=== PATIENT | female | born 1985 | race Caucasian/White ===

== ENCOUNTER → 2017-01-08 | Outpatient (CLI) | payer BC ==
[~2017-01-08] MED LIST: ALBUAER2 INH; AZIT250T PO; AZITTAB PO; BCPILLS PO; HYCUDL5 PO
[2017-01-08 17:28] LABS: URINE APPEARANCE CLEAR (CLEAR); URINE BILIRUBIN NEG (NEG); URINE COLOR YELLOW; URINE NITRITE NEG (NEG); URINE SPECIFIC GRAVITY 1.025 (1.000-1.030); UROBILINOGEN NEG (NEG)
[2017-01-08 17:29] LABS: MANUAL MICROSCOPIC REQUIRED? NO; REVIEW REQ? NO
== END | disposition home or self-care (01) ==
LOC: C.LABSPEC 16:03
PROVIDERS: ATTEND Obstetrics & Gynecology
DX: O09.299 Supervision of pregnancy with other poor reproductive or obstetric history, unspecified trimester (principal)

== ENCOUNTER → 2017-02-04 | Outpatient (CLI) | payer BC ==
[2017-02-04 15:48] LABS: BASO % 0.1 %; BASO ABS # 0.02 K/uL (0-0.2); COMPLETE YES; EOS % 1.4 %; HEMATOCRIT 37.2 % (37-47); IG% 0.3 %; LYMPH % 14.5 %; LYMPH ABS # 2.12 K/uL (1.2-3.4); MEAN CELL VOLUME 86.7 fL (80-100); MEAN CORPUSCULAR HEMOGLOBIN 30.1 pg (25-34); MEAN CORPUSCULAR HGB CONC 34.7 g/dl (32-36); NEUT % 79.7 %; PLATELET COUNT 296 K/uL (130-400); RED BLOOD COUNT 4.29 M/uL (4.2-5.4); WHITE BLOOD COUNT 14.63 K/uL (4.8-10.8)
== END | disposition home or self-care (01) ==
LOC: C.LAB1850 14:18
PROVIDERS: ATTEND Obstetrics & Gynecology
DX: Z34.00 Encounter for supervision of normal first pregnancy, unspecified trimester (principal)

== ENCOUNTER → 2017-02-04 | Outpatient (CLI) | payer BC ==
[2017-02-07 01:00] LABS: CHLAMYDIA TRACH RNA*** NOT DETECTED (NOT DETECTED); GC (NEIS GONORRHOEAE)RNA** NOT DETECTED (NOT DETECTED)
== END | disposition home or self-care (01) ==
LOC: C.LABSPEC 16:24
PROVIDERS: ATTEND Obstetrics & Gynecology
DX: Z34.00 Encounter for supervision of normal first pregnancy, unspecified trimester (principal)

== ENCOUNTER → 2017-03-24 | Outpatient (CLI) | payer BC ==
[~2017-03-24] MED LIST changes: +MTR600X PO; +OXYC-57 PO; +PRENTAB26 PO
[2017-03-24 14:09] LABS: GTGD 50 Grams
[2017-03-25 16:23] LABS: AFP MULTIPLE OF MEDIAN 1.06; AFPTS GESTATIONAL AGE 17.1 WEEKS; AFPTS INSULIN DEP DIABETIC? NO; AFPTS MATERNAL WT 256 LBS; ALPHA-FETOPROTEIN RACE CAUCASIAN=W; HISTORY OF NTD NO; INHIBIN A 101 PG/ML; INHIBIN A MOM 0.77; REPEAT SAMPLE? NO; hCG MULTIPLE OF MEDIAN 0.55
== END | disposition home or self-care (01) ==
LOC: C.LAB1850 09:42
PROVIDERS: ATTEND Obstetrics & Gynecology
DX: O09.299 Supervision of pregnancy with other poor reproductive or obstetric history, unspecified trimester (principal); Z3A.00 Weeks of gestation of pregnancy not specified

== ENCOUNTER → 2017-03-28 | Outpatient (CLI) | payer BC | END | disposition home or self-care (01) | LOC: C.LAB1850 07:13 | PROVIDERS: ATTEND Obstetrics & Gynecology | DX: O28.1 Abnormal biochemical finding on antenatal screening of mother (principal); Z3A.00 Weeks of gestation of pregnancy not specified ==

== ENCOUNTER → 2017-06-11 | Outpatient (CLI) | payer BC ==
[~2017-06-11] MED LIST changes: -MTR600X PO; -OXYC-57 PO; -PRENTAB26 PO
[2017-06-11 11:38] LABS: URINE APPEARANCE CLEAR (CLEAR); URINE BILIRUBIN NEG (NEG); URINE COLOR YELLOW; URINE EPITHELIAL CELL AUTO >30 /lpf (0-5); URINE NITRITE NEG (NEG); UROBILINOGEN NEG (NEG)
[2017-06-11 11:40] LABS: MANUAL MICROSCOPIC REQUIRED? NO; REVIEW REQ? NO
== END | disposition home or self-care (01) ==
LOC: C.LAB1850 08:33
PROVIDERS: ATTEND Obstetrics & Gynecology
DX: O24.410 Gestational diabetes mellitus in pregnancy, diet controlled (principal); Z3A.00 Weeks of gestation of pregnancy not specified

== ENCOUNTER → 2017-08-04 | Outpatient (CLI) | payer BC | END | disposition home or self-care (01) | LOC: C.LABSPEC 18:01 | PROVIDERS: ATTEND Obstetrics & Gynecology | DX: Z34.03 Encounter for supervision of normal first pregnancy, third trimester (principal) ==

== ENCOUNTER 2017-09-04 08:24 | Inpatient (IN) | payer BC ==
[~2017-09-04] VITALS: Ht 162.6 cm; Wt 118.2 kg
[2017-09-04] MEDS ORDERED: LACTATED RINGER'S 1000ML 500 ML IV PRN ×2 (08:59→14:57)
[2017-09-04] MEDS ORDERED: OXYTOCIN 30 UNITS/500ML NSS IV PRN (09:00)
[2017-09-04] MEDS ORDERED: CEFAZOLIN IV 1,000 MG in DEXTROSE 5% 50ML 50 ML IV PRN (09:30)
[2017-09-04 09:41] LABS: MEAN CORPUSCULAR HEMOGLOBIN 30.2 pg (25-34); MEAN CORPUSCULAR HGB CONC 33.9 g/dl (32-36); MEAN PLATELET VOLUME 8.7 fL (7.4-10.4); PLATELET COUNT 221 K/uL (130-400); RED BLOOD COUNT 4.27 M/uL (4.2-5.4); WHITE BLOOD COUNT 16.13 K/uL (4.8-10.8)
[2017-09-04] MEDS ORDERED: CEFAZOLIN IV 2,000 MG in SYRINGE 0 ML IV ONE (10:00)
[2017-09-04] MEDS ORDERED: CEFAZOLIN IV 2,000 MG in DEXTROSE 5% 50ML 50 ML IV ONE (10:00)
[2017-09-04] MEDS: LACTATED RINGER'S 1000ML 1,000 ML IV SCH (10:30)
[2017-09-04 11:56] VITALS: Ht 162.6 cm; Wt 118.2 kg
[2017-09-04] MEDS ORDERED: PRENTAB26 PO (12:03)
[2017-09-04] MEDS ORDERED: BUPIVACAINE 0.25% 30 ML VIAL ONE (14:09)
[2017-09-04] MEDS ORDERED: FENTANYL CITRATE INJ 50 MCG/1 ML 2 ML VIAL ONE (14:09)
[2017-09-04] MEDS ORDERED: EpHEDrine SULFATE INJ 50 MG/ML AMP ONE (14:09)
[2017-09-04] MEDS ORDERED: FENTANYL 2MCG/ML ROPIV 1.25MG/ML 100ML BAG EPI ONE (14:09)
[2017-09-04] MEDS: LACTATED RINGER'S 1000ML 1,000 ML IV PRN (14:36)
[2017-09-04] MEDS ORDERED: NALOXONE HCL INJ 1 MG in SODIUM CHLORIDE 0.9% 1000ML 1,000 ML IV PRN (14:57)
[2017-09-04] MEDS ORDERED: DiphenhydrAMINE HCL 50 MG/ML VIAL IV PRN (15:00)
[2017-09-04] MEDS ORDERED: ONDANSETRON INJ 2 MG/ML 2 ML VIAL IV PRN (15:00)
[2017-09-04] MEDS ORDERED: NALBUPHINE HCL INJ 10 MG/ML AMP IV PRN (15:00)
[2017-09-04] MEDS ORDERED: NALOXONE HCL INJ 0.4 MG/1 ML VIAL/CARP IV PRN (15:00)
[2017-09-04] MEDS ORDERED: EpHEDrine SULFATE INJ 50 MG/ML AMP IV PRN (15:00)
[2017-09-04] MEDS: CEFAZOLIN IV 1,000 MG in SYRINGE 0 ML IV PRN (18:47)
[2017-09-04] MEDS: FENTANYL 2MCG/ML ROPIV 1.25MG/ML 100ML BAG EPI PRN (23:10)
[2017-09-04] MEDS ORDERED: NURSING VERBAL MED ORDER ONE ×2 (23:45)
[2017-09-04] MEDS ORDERED: CALCIUM CARBONATE 500 MG CHEWABLE PO PRN (23:45)
[2017-09-05] VITALS (10 sets, daily range): BP systolic 118–144; BP diastolic 78–85; PULSE 96–103; TEMP 36.4–37; O2SAT 96–98
[2017-09-05] MEDS: ACETAMINOPHEN 325 MG TAB PO PRN ×2 (00:10→06:20)
[2017-09-05] MEDS: FENTANYL 2MCG/ML ROPIV 1.25MG/ML 100ML BAG EPI PRN ×2 (00:11→07:07)
[2017-09-05] MEDS: CEFAZOLIN IV 1,000 MG in SYRINGE 0 ML IV PRN (03:10)
[2017-09-05] MEDS: LACTATED RINGER'S 1000ML 1,000 ML IV SCH (05:00)
[2017-09-05] MEDS: LACTATED RINGER'S 1000ML 1,000 ML IV PRN (09:31)
[2017-09-05] MEDS ORDERED: LACTATED RINGER'S 1000ML 1,000 ML IV SCH ×2 (09:37→12:15)
[2017-09-05] MEDS ORDERED: CITRIC ACID/SODIUM CITRATE 15 ML UDC ONE (09:38)
[2017-09-05] MEDS ORDERED: CLINDAMYCIN IV 900 MG in DEXTROSE 5% 100ML 100 ML IV ONE (09:40)
[2017-09-05] MEDS ORDERED: LIDOCAINE/EPINEPHRINE 2% 1:200,000 20 ML SDV ONE (09:41)
[2017-09-05] MEDS ORDERED: OXYTOCIN INJ 10 UNITS/ML VIAL ONE ×2 (09:42)
[2017-09-05] MEDS ORDERED: PHENYLEPHRINE HCL INJ 10 MG/ML VIAL ONE (09:42)
[2017-09-05] MEDS ORDERED: EpHEDrine SULFATE INJ 50 MG/ML AMP ONE (09:42)
[2017-09-05] MEDS ORDERED: FENTANYL CITRATE INJ 50 MCG/1 ML 2 ML VIAL ONE (09:42)
[2017-09-05] MEDS ORDERED: CITRIC ACID/SODIUM CITRATE 15 ML UDC PO ONE (09:45)
[2017-09-05] MEDS ORDERED: MoRPHine SULFATE PF 1 MG/ML 10 ML AMP/VIAL ONE (09:51)
--- NOTE | 2017-09-05 10:28 | HISTORY & PHYSICAL EXAMINATION ---
DATE OF ADMISSION: 09/04/2017 HISTORY OF PRESENT ILLNESS: The patient is a 32-year-old 2, para 0-0-1-0 with an EDC of 08/31/2017, who presented to labor and delivery with premature rupture of membranes before the onset of labor. She was GBS positive and has been adequately treated. She was admitted and underwent Pitocin augmentation. During the course of her augmentation, she had a very large deep decels. She was checked and the umbilical cord was found to be up around the face. This was reduced by the physician and the strip immediately returned to category 1. Decision was made to continue with induction. I took over the care of the patient at approximately 07:30 a.m. on September 05. At that point in time, her Pitocin had just been discontinued after the fetus had had several variable decels with contractions. Apparently, this has happened intermittently overnight with turning of Pitocin on and off. Despite that, the patient did progress to [facility]. I checked the patient at that time and she was a rim with significant molding. The molding was presenting at 0 station, but I suspect that the true BPD was at -1 to -2 station. The fetus recovered from this and Pitocin augmentation was again initiated. Unfortunately, the patient continued to have persistent variable decelerations with contractions when there were any significant contractions, these decels were to the 60s. Given the remote missed from delivery and the appearance of the strip at that time, at this time, I have recommended that we proceed with delivery and the patient and her spouse are agreeable. This has been complicated by diet-controlled gestational diabetes and normal echo for inability to view outflow tracts. She does have a history of being [place] antigen positive with her previous that has been negative in this . She is also Rh negative. She also has issue with obesity. ALLERGIES: PENICILLIN AND AUGMENTIN. PENICILLIN CAUSES RASH AND SWELLING as does AUGMENTIN. PAST OBSTETRICAL AND GYNECOLOGIC HISTORY: This is the patient's second . In December of 2015, she had a blighted ovum at 9 weeks. She also has a history of a vertical midline incision for an ovarian cystectomy in 2005. PAST MEDICAL HISTORY: The patient has obesity, seasonal allergies and a history of chickenpox. She is otherwise healthy, denying thyroid disease, asthma, heart disease, heart murmur, diabetes, kidney or liver problems. PAST SURGICAL HISTORY: Includes an ovarian cystectomy in 2006. SOCIAL HISTORY: The patient denies tobacco, alcohol or drugs. Lives with her spouse. Her family is present and supportive. PHYSICAL EXAMINATION: GENERAL: This is a well-developed and well-nourished white female in no acute distress. She has been afebrile throughout her labor. CHEST: Clear to auscultation bilaterally. CARDIOVASCULAR: Regular rate and rhythm without murmurs, gallops or rubs. BACK: Without costovertebral angle tenderness. ABDOMEN: Gravid, soft and nontender. EXTREMITIES: Show trace to +1 edema, but are otherwise benign. PELVIC: We have a rim, 100% and -1 station. Tocodynamometer shows her billie very regularly every 5 minutes on average. External monitor: The baby is in the 160s with moderate variability, small accels, positive scalp stim and variables as described above. This is a category 2 strip. ASSESSMENT: This is a 32-year-old 2, para 0-0-1-0 with an EDC of 08/31/2017, presenting at 40 and 5/7 weeks with premature onset of rupture of membranes prior to labor. She has now progressed to a rim, but we have nonreassuring heart tones and I have decided to proceed with delivery. The risks of the procedure were discussed with the patient including the risks of anesthesia, bleeding requiring transfusion, infection, poor wound healing, damage to surrounding structures including bowel, bladder, vessels, nerves and ureters with need for further surgery, hospitalization or intervention. We discussed the risk of urinary retention, blood clot in leg or lung as well as the other risks of surgery including heart attack, blood clot, stroke or . Consent was reviewed and signed and we plan to proceed to the operating room. ELENA
[2017-09-05] MEDS ORDERED: DIPHTHERIA/TETANUS/PERTUSSIS 0.5 ML SYR/VIAL IM. ONE (11:00)
[2017-09-05] MEDS ORDERED: BENZOCAINE 20% AER SPR 82.5 GM CAN EXT PRN (11:00)
[2017-09-05] MEDS ORDERED: HYDROCORTISONE ACETATE 25 MG SUPP PR PRN (11:00)
[2017-09-05] MEDS ORDERED: LANOLIN OINT EXT PRN ×2 (11:00)
[2017-09-05] MEDS ORDERED: DC PCA PRN (11:00)
[2017-09-05] MEDS ORDERED: SUPERCREAM 0.870 % 15GM JAR EXT PRN (11:00)
[2017-09-05] MEDS ORDERED: NALOXONE HCL INJ 1 MG in SODIUM CHLORIDE 0.9% 1000ML 1,000 ML IV PRN (11:11)
[2017-09-05] MEDS ORDERED: DiphenhydrAMINE HCL 50 MG/ML VIAL IV PRN (11:15)
[2017-09-05] MEDS ORDERED: EpHEDrine SULFATE INJ 50 MG/ML AMP IV PRN (11:15)
[2017-09-05] MEDS ORDERED: MoRPHine SULFATE PF 1 MG/ML 10 ML AMP/VIAL EPI PRN ×2 (11:15)
[2017-09-05] MEDS ORDERED: NO NARCOTICS OR SEDATIVES SCH (11:15)
[2017-09-05] MEDS ORDERED: PHENYLEPHRINE 100MCG/ML 5ML SYR IV PRN (11:15)
[2017-09-05] MEDS ORDERED: ONDANSETRON INJ 2 MG/ML 2 ML VIAL IV PRN ×2 (11:15→20:30)
[2017-09-05] MEDS ORDERED: NALOXONE HCL 0.4 MG/1 ML VIAL/CARP IV PRN (11:15)
[2017-09-05] MEDS ORDERED: ATROPINE SULFATE 0.1 MG/ML 5ML SYR IV PRN (11:15)
[2017-09-05] MEDS ORDERED: CONTINUE MEDICATION SCH (11:15)
[2017-09-05] MEDS ORDERED: KETOROLAC TROMETHAMINE 30 MG/ML VIAL IV. PRN (11:15)
[2017-09-05] MEDS ORDERED: MoRPHine SULFATE 2 MG/ML CARP IV PRN (11:15)
[2017-09-05] MEDS ORDERED: PROMETHAZINE HCL INJ 12.5 MG in SODIUM CHLORIDE 0.9% 50ML 50 ML IV PRN (11:15)
[2017-09-05] MEDS ORDERED: FENTANYL CITRATE INJ 50 MCG/1 ML 2 ML VIAL IV PRN (11:15)
[2017-09-05] MEDS ORDERED: NALBUPHINE HCL INJ 10 MG/ML AMP IV PRN (11:15)
[2017-09-05] MEDS ORDERED: HYDROmorphone INJ 1 MG/ML SYR IV PRN (11:15)
[2017-09-05] MEDS ORDERED: MEPERIDINE HCL 25 MG/ML CARP IV PRN (11:15)
--- NOTE | 2017-09-05 11:26 | Anesthesia Procedure Note ---
Anesthesia Epidural Removal Nt Date & Time Sep 05, 2017 at 11:26 Vital Signs Pain Intensity: 0.0 Notes Mental Status: alert / awake / arousable, participated in evaluation Nausea / Vomiting: adequately controlled Pain: adequately controlled Airway Patency, RR, SpO2: stable & adequate BP & HR: stable & adequate Hydration State: stable & adequate Neuraxial Anesthesia: was administered Anesthetic Complications: no major complications apparent, pt satisfied with anesthetic care Epidural: removed without complications, with tip intact
--- NOTE | 2017-09-05 11:31 | Anesthesiology Progress Note ---
Anesthesia Post Op Note Date & Time Sep 05, 2017 at 11:31 Vital Signs Pain Intensity: 0.0 Notes Mental Status: alert / awake / arousable, participated in evaluation Pt Amnestic to Procedure: Yes Nausea / Vomiting: adequately controlled Pain: adequately controlled Airway Patency, RR, SpO2: stable & adequate BP & HR: stable & adequate Hydration State: stable & adequate Neuraxial Anesthesia: was administered, sensory block is resolving Anesthetic Complications: no major complications apparent
[2017-09-05] MEDS: OXYTOCIN INJ 20 UNITS in LACTATED RINGER'S 1000ML 1,000 ML IV SCH ×2 (12:29→20:53)
[2017-09-05] MEDS: SIMETHICONE 80 MG CHEW PO SCH ×3 (13:29→20:00)
--- NOTE | 2017-09-05 16:51 | [facility] Post Operative Brief Note ---
Immediate Operative Summary Operative Date Sep 05, 2017. Pre-Operative Diagnosis INTRA-UTERINE AT 40 WEEKS GESTATION - NON-REASSURING HEART RATE Post-Operative Diagnosis SAME PRE-OP Procedure(s) Performed PRIMARY low transverse C/SECTION Surgeon DR. ALEJANDRO Materials Planning Manager Surgeon(s) DR. MCDERMOTT, DR. GONZALEZ Estimated Blood Loss 600 Findings adhesions of the omentum to the anterior abdominal wall. fetus wedged into the pelvis requiring displacement from the vagina. left cervical extension. nl tubes and ovaries. Viable male . apgars 3/9. 8# 3oz Specimens ARTERIAL CORD BLOOD GAS VENOUS CORD BLOOD GAS PLACENTA CORD BLOOD Drains huber Anesthesia epidural Complication(s) None Disposition Recovery Room / PACU
--- NOTE | 2017-09-05 17:42 | OPERATIVE REPORT ---
DATE OF OPERATION: 09/05/2017 PREOPERATIVE DIAGNOSES: 1. Intrauterine at 40+ weeks. 2. Nonreassuring heart testing. 3. Gestational diabetes mellitus, diet controlled. POSTOPERATIVE DIAGNOSES: Same. PROCEDURE: Primary lower transverse section with a left cervical extension. SURGEON: Dr. Solis. RIM TURNING MACHINE OPERATOR: Dr. Awan and Dr. Carroll. ANESTHESIA: Epidural. ESTIMATED BLOOD LOSS: 600 mL. INTRAVENOUS FLUIDS: URINE OUTPUT: Clear yellow urine draining from the bladder at the end of the procedure. INDICATIONS: The patient is a 1, para 0 who presented to labor and delivery with premature rupture of membranes. She was induced with Pitocin, got cephalosporin for group B strep prophylaxis. She progressed intermittently with Pitocin needing it turned on and off for variable decelerations. She did finally progressed to a rim; however, may be we had worsening variable decelerations and did not tolerate Pitocin augmentation and when Pitocin was turned off, her contractions spaced to every 5-7 minutes. Given this situation and the remoteness from delivery, we decided to proceed with delivery. FINDINGS: Normal uterus, tubes, and ovaries were noted bilaterally. There were adhesions of the omentum to the anterior abdominal wall. The fetus was 8 pounds 3 ounces, Apgars were 3 and 9. The fetus was wedged into the pelvis and required displacement vaginally. There was a left cervical extension. COMPLICATIONS: None. DRAINS: Arellano. DISPOSITION: To recovery room in stable condition. PROCEDURE: The patient was taken to the operating room where she was identified verbally and by bracelet. She was placed in the dorsal supine position with a leftward tilt. A Arellano catheter had already been placed and her epidural was dosed. She was then prepped and draped in normal sterile fashion. Her anesthetic was tested and found to be adequate. A timeout was held identifying correct patient, procedure, preoperative antibiotics and positioning. The patient had a previous midline vertical incision from a cystectomy and we decided to go through that. We went through the skin with a knife down to the underlying layer of fascia with the knife and Bovie electrocautery. Fascia was incised in the midline with the knife and taken superiorly and inferiorly with the knife. The fascia was then , the rectus muscles were as well and the peritoneum was entered in a blunt fashion. There were omental adhesions noted throughout, which were taken down with good visualization with Bovie electrocautery. Once we got good visualization of the uterus and an Mitul self-retaining retractor was placed into the incision. A bladder flap was then created by grasping up vesicouterine peritoneum with pickups and incising with scissors and the bladder flap was created digitally. A bladder blade was placed. A hysterotomy incision was made with a knife. Clear fluid was noted. The incision was stretched with the glue plant operator's fingers. The glue plant operator's hand was placed into the uterus keeping the wrist flat. The baby was well wedged into the pelvis and could not be removed using the glue plant operator's hand. Therefore, a nursing informatics analyst was placed in a sterile glove from below and pushed the baby up back into the uterus and then I was able to grasp flex the head and eventually bring the head atraumatically through the incision. There was at least a loose nuchal cord and several loops of cord by the baby's neck. The rest of the was then delivered without difficulty using fundal pressure. The cord was clamped and cut. The nose and mouth were bulb suctioned during that time and the infant was handed off to waiting pediatricians for drying and attention. Cord blood and gases were obtained. The placenta was manually extracted, the uterus was cleared of all clot and debris with moistened laparotomy sponges and the uterus was then exteriorized. We used T clamps to identify the edges of the hysterotomy incision and the left cervical extension was discovered. The edge of the left cervical extension was identified and was sewed with 0 Vicryl and this was taken all the way to the other side. Then an imbricating suture of 0 Vicryl was used in a second layer and tied to the first layer on the right side. Several [id number] sutures of 0 Vicryl were needed for hemostasis and this was discovered once the uterus was reanteriorized in the abdomen. Some bleeding edges were attended to with Bovie electrocautery and then hemostasis was noted to be excellent. The fascia was then reapproximated starting anteriorly and posteriorly and meeting in the middle with #1 PDS suture. The subcuticular tissue was copiously irrigated, found to be hemostatic and was closed using 2-0 Vicryl in a horizontal mattress suture. The skin was then closed with ezequiel. All sponge, lap and needle counts were correct x2. The patient tolerated the procedure well and was taken to recovery room in stable condition. I attest to the content of the Intraoperative Record and any orders documented therein. Any exception s are noted below.
[2017-09-05] MEDS: DOCUSATE SODIUM 100 MG CAP PO SCH (20:00)
[2017-09-06] VITALS (9 sets, daily range): BP systolic 116–128; BP diastolic 72–87; PULSE 85–98; TEMP 36.5–36.9; O2SAT 95–98
[2017-09-06] MEDS ORDERED: OXYCODONE/ACETAMINOPHEN 5-325 TAB PO PRN (04:30)
[2017-09-06] MEDS ORDERED: DiphenhydrAMINE HCL 50 MG/ML VIAL IV PRN (04:30)
[2017-09-06] MEDS ORDERED: DC INTRASPINAL MORPHINE ONE (04:30)
[2017-09-06] MEDS ORDERED: KETOROLAC TROMETHAMINE 30 MG/ML VIAL IV. PRN (04:30)
[2017-09-06] MEDS ORDERED: MEPERIDINE HCL 50 MG/ML CARP IV PRN ×2 (04:30)
[2017-09-06] MEDS: LACTATED RINGER'S 1000ML 1,000 ML IV SCH (05:37)
[2017-09-06] MEDS ORDERED: NURSING VERBAL MED ORDER ONE (06:00)
--- NOTE | 2017-09-06 07:23 | Progress Note ---
Subjective Sep 06, 2017. Subjective conversation w/ patient, physical exam, chart review, lab review Ambulation: limited ambulation (not out of bed yet) Voiding: huber catheter in place (light yellow urine in bag) Passing Gas: Yes Diet Tolerance: Clear Liquids, Nausea/Vomiting (initially post-op, resolved this morning) Lochia: Moderate Feeding Type: Breast Feeding Pain: Says has some low abd cramping Comment: Found pt sitting up in the bed, says has some cramping (controlled with toradol ) but her nausea has resolved. No focal acute concerns. Review of Systems Constitutional: No fever, No chills Respiratory: No cough, No shortness of breath Cardiac: No chest pain Abdomen: + nausea, + vomiting, No diarrhea Objective Vital Signs Date Time Temp Pulse Resp B/P (MAP) Pulse Ox O2 Delivery O2 Flow Rate FiO2 09/06/17 04:00 36.7 93 22 127/83 (98) 98 Room Air 09/06/17 04:00 22 98 09/06/17 03:00 18 95 09/06/17 02:00 20 98 09/06/17 01:00 20 98 09/06/17 01:00 36.5 98 20 116/72 (87) 98 Room Air 09/06/17 01:00 98 Room Air 09/05/17 23:40 20 97 09/05/17 22:30 20 96 09/05/17 21:30 20 96 09/05/17 20:30 36.9 103 20 144/85 (104) 97 Room Air 09/05/17 20:30 20 97 09/05/17 19:30 16 96 09/05/17 18:30 18 97 09/05/17 17:30 20 96 09/05/17 16:30 18 97 09/05/17 16:30 96 20 118/78 (91) 97 Room Air 09/05/17 15:30 36.4 98 18 137/81 (99) 98 Room Air 09/05/17 15:30 18 98 09/05/17 15:30 98 Room Air 09/05/17 14:00 97 Room Air 09/05/17 14:00 37.0 96 18 133/80 (97) 97 Room Air 09/05/17 14:00 18 97 Physical Exam General Appearance: WELL-APPEARING, WD/WN, NO APPARENT DISTRESS Respiratory/Chest: lungs clear, normal breath sounds, no respiratory distress Cardiovascular: regular rate, rhythm, no murmur Abdomen: normal bowel sounds, non tender, soft Fundus: Firm, Tender (mild), Relation to Umbilicus (at umbilicus) Incision Description: Clean, Dry & Intact (vertical midline, ezequiel in place, some dried blood but no present discharge or surrounding erythema) Extremities: normal range of motion, no calf tenderness, + pedal edema (2-plus bilaterally) Laboratory Results Last 24 Hours Test 09/06/17 07:05 Assessment and Plan Post-Op Day#: 1 Continue Routine Care: 32F s/p primary for non-reassuring heart rate, now PPD # 1. - Blood type A negative. Infants blood type O positive. Pt received RhoGam around 28 weeks GA. - GBS positive, s/p antibiotics pre-delivery. Rubella immune. - Vital signs reviewed and stable. - Pain controlled with toradol. - Bilateral symmetrical leg swelling and no tenderness on calf palpation. Encourage ambulation once huber out. - Encourage breast feeding. - Hemoglobin pre-delivery 12.9, post-delivery pending this am. Bleeding has improved. Continue to monitor clinically. - Plan for incision ezequiel to be removed 7 days post-op. - Continue routine post delivery care. - Pt agreed with above plan, all current questions answered. Ricki Terry MD, PGY1 Assistant In Nursing Physician Supervision Note: I interviewed and examined the patient. Discussed with [Name of resident] and agree with findings and plan as documented in the note. Any exceptions or clarifications are listed here: [None] Documented By: Yanely Solis Resident Tracking Resident Involvement: Resident Care Provided Care Provided: OB Delivery (OB rounds)
[2017-09-06] MEDS ORDERED: LACTATED RINGER'S 1000ML 500 ML IV ONE (07:30)
[2017-09-06 07:47] LABS: BASO % 0.1 %; BASO ABS # 0.03 K/uL (0-0.2); COMPLETE YES; EOS % 0.6 %; HEMATOCRIT 29.8 % (37-47); IG% 0.3 %; LYMPH % 6.9 %; LYMPH ABS # 1.43 K/uL (1.2-3.4); MEAN CELL VOLUME 90.3 fL (80-100); MEAN CORPUSCULAR HGB CONC 33.2 g/dl (32-36); MEAN PLATELET VOLUME 8.6 fL (7.4-10.4); NEUT % 86.1 %; PLATELET COUNT 174 K/uL (130-400)
[2017-09-06] MEDS: DOCUSATE SODIUM 100 MG CAP PO SCH ×2 (08:40→20:10)
[2017-09-06] MEDS: SIMETHICONE 80 MG CHEW PO SCH ×4 (08:41→20:10)
[2017-09-06] MEDS: PRENATAL VITAMIN TAB PO SCH (08:41)
[2017-09-06] MEDS: OXYCODONE/ACETAMINOPHEN 5-325 TAB PO PRN ×2 (12:09→17:19)
[2017-09-06] MEDS: IBUPROFEN 600 MG TAB PO PRN ×2 (12:10→17:20)
[2017-09-07] MEDS: IBUPROFEN 600 MG TAB PO PRN ×3 (00:04→13:23)
[2017-09-07] MEDS: OXYCODONE/ACETAMINOPHEN 5-325 TAB PO PRN ×3 (00:05→13:24)
[2017-09-07] MEDS ORDERED: MTR600X PO (06:28)
[2017-09-07] MEDS ORDERED: OXYC-57 PO (06:28)
--- NOTE | 2017-09-07 06:28 | Progress Note ---
Subjective Sep 07, 2017. Subjective conversation w/ patient, physical exam, chart review, lab review Ambulation: ambulating normally Voiding: no voiding problems Passing Gas: Yes Diet Tolerance: Regular Diet Lochia: Small Objective Vital Signs Date Time Temp Pulse Resp B/P (MAP) Pulse Ox O2 Delivery O2 Flow Rate FiO2 09/06/17 23:45 98 Room Air 09/06/17 23:45 36.9 89 18 123/85 09/06/17 17:15 98 Room Air 09/06/17 17:15 36.7 85 18 123/83 09/06/17 11:15 36.6 90 16 123/85 (98) 97 Room Air 09/06/17 07:30 97 Room Air 09/06/17 06:52 36.8 88 14 128/87 (101) 98 Room Air Physical Exam General Appearance: WELL-APPEARING Abdomen: non tender Fundus: Firm Incision Description: Clean, Dry & Intact Extremities: no calf tenderness Laboratory Results Last 24 Hours Test 09/06/17 07:05 09/07/17 06:00 White Blood Count 20.60 K/uL Red Blood Count 3.30 M/uL Hemoglobin 9.9 g/dL Hematocrit 29.8 % Mean Corpuscular Volume 90.3 fL Mean Corpuscular Hemoglobin 30.0 pg Mean Corpuscular Hemoglobin Concent 33.2 g/dl Platelet Count 174 K/uL Mean Platelet Volume 8.6 fL Neutrophils (%) (Auto) 86.1 % Lymphocytes (%) (Auto) 6.9 % Monocytes (%) (Auto) 6.0 % Eosinophils (%) (Auto) 0.6 % Basophils (%) (Auto) 0.1 % Neutrophils # (Auto) 17.71 K/uL Lymphocytes # (Auto) 1.43 K/uL Monocytes # (Auto) 1.24 K/uL Eosinophils # (Auto) 0.12 K/uL Basophils # (Auto) 0.03 K/uL RDW Standard Deviation 48.7 fL RDW Coefficient of Variation 14.6 % Immature Granulocyte % (Auto) 0.3 % Immature Granulocyte # (Auto) 0.07 K/uL Assessment and Plan Post-Op Day#: 2 Continue Routine Care: home
--- NOTE | 2017-09-07 06:29 | Discharge Instructions ---
Discharge Instructions Date of Service Sep 07, 2017. Admission Reason for Admission: Check Labor Discharge Discharge Diagnosis / Problem: C/S Discharge Goals Goal(s): Routine recovery after Activity Recommendations Activity Limitations: per Instructions/Follow-up section . Instructions / Follow-Up Instructions / Follow-Up ACTIVITY RECOMMENDATIONS: * Gradual return to full activity over the next 2-3 weeks. * No lifting - nothing heavier than baby over the next 2-3 weeks. * Do not engage in vigorous exercise, sexual activity or sports until cleared by your physician. * Do not drive or operate any motorized equipment until cleared by your physician. * You may shower/bathe daily. MEDICATIONS: For discomfort or pain, you may use Acetaminophen (Tylenol), Ibuprofen (Advil), or Naproxen (Aleve) following the package directions. For constipation you may use Colace following the package directions. BREAST CARE: If you are not breast feeding: * Wear a supportive bra 24 hours a day for one to two weeks. * Avoid stimulating your breasts and nipples as much as possible during the first few weeks after delivery. * When taking a shower, have the warm water hit your back, not breasts. * When your breasts feel full, apply ice packs. Usually three to four times a day helps ease the discomfort. * Take a mild pain medication (Tylenol / Motrin) when you are uncomfortable. If breast feeding: * Use breast milk to lubricate nipples. Lansinoh cream may be used for sore nipples. You do not need to remove cream prior to breast feeding. If using a different brand of cream, check the label for directions regarding removal of cream prior to nursing. * Wear a supportive bra. * If having problems with breasts or breast feeding, call a technical consultant or your health care provider. SPECIAL CARE INSTRUCTIONS: When you are discharged from the hospital, it is important for you to follow the instructions listed below: * During the first week at home, you should be able to care for yourself and your baby. In addition, the usual light household activities are encouraged. * Limit your activities to the way you feel. Do not try to clean the house or move furniture. Be sensible. * If you actively engage in sports and have done so up until the time of your delivery, you may resume these activities as soon as you feel able. This may take up to one month or even longer. Use good judgment. * Continue to take your vitamins for at least six weeks after the of your baby. * Your diet need not be limited unless you were on a special diet before your delivery. Breast-feeding mothers need around 2500 calories per day and at least 64-80 ounces of fluid per day (8 to 10 glasses). * You should eat foods from the four major food groups. Crash diets or fad diets are to be avoided. Eating lean meats, fresh fruits and vegetables, low-fat dairy products, high fiber foods and a regular exercise program, will help you get back to your pre- weight without putting your health at risk. * Constipation is sometimes a problem after delivery. Take a mild laxative as needed. If breast feeding, Milk of Magnesia is acceptable to use. You may use a suppository or Fleets enema. * A daily shower or tub bath is suggested. Wash incision daily with warm soapy water and pat dry. It doesn't need to be covered unless drainage is present. * A bloody vaginal discharge will usually continue until around four weeks . A small amount of bleeding may continue for as long as six weeks. Vaginal discharge changes from the bright red bleeding after delivery to pink then brownish and finally yellowish-pink before becoming white and disappearing. * Bleeding may increase with activity. Your first period may come in 4-8 weeks. If you are breast feeding, your period may be delayed even longer. * [place] (sex) can begin whenever both you and your partner feel comfortable and do not have any form of genital infection. It is recommended that you wait at least six weeks for internal and external healing to occur. If you have questions, please talk to your health care practitioner. A condom should be used to prevent infection and . * Foreplay, gentle intercourse and lubrication is very important the first several times to prevent pain. A water-based lubricant such as K-Y jelly or Astroglide may be used. * If you have RH negative blood and your baby is RH positive, you will receive RHOGAM by injection prior to discharge. The nurse will give you a card to keep with you that has the date and place that you received RHOGAM after delivery. * During your care, you had a Rubella screen done to check for the presence of rubella antibodies in your blood. If your test was negative, you will receive a Rubella vaccine prior to discharge. This vaccine may cause a fever, soreness at the injection site and flu-like symptoms. If these symptoms persist, notify your health care practitioner. is not advised for one month after a Rubella vaccine. * Verbalizes understanding of car seat law as reviewed with patient nursing. * Car Seat hand-out given and reviewed with patient by nursing. * Shaken baby information reviewed with patient by nursing. Call you doctor if: * Heavy bleeding (saturating several pads an hour) or passing clots the size of your fist. * A fever >101 degrees F (38.3 degrees C) on two occasions four hours apart and /or chills. * Unusual pain in the pelvic or vaginal areas. * Call the doctor for any increased redness, drainage or swelling around the incision and any pain unrelieved by prescribed pain medication. * "Baby Blues" lasting longer than two weeks. If you have any questions or concerns, call your health care practitioner at . FOLLOW UP VISIT: * Please call the office at to schedule a 6 week examination. It is important you keep this appointment. It is important for you to make arrangements for either yearly or twice yearly check-ups thereafter. Current Hospital Diet Patient's current hospital diet: Regular OB Diet Discharge Diet Recommended Diet: Regular OB Diet Procedures Procedures Performed: PRIMARY low transverse C/SECTION Pending Studies Studies pending at discharge: no Medical Emergencies . Who to Call and When: Medical Emergencies: If at any time you feel your situation is an emergency, please call [phone] immediately. . Non-Emergent Contact Non-Emergency issues call your: Roll Trucker . . "Provider Documentation" section prepared by Hosea Awan. . VTE Core Measure Inpt VTE Proph given/why not?: Avila Strong, SCD's
[2017-09-07 06:55] LABS: HEMATOCRIT 28.6 % (37-47)
[2017-09-07 08:15] VITALS: BP 118/79; PULSE 79; TEMP 36.8; O2SAT 98
[2017-09-07] MEDS: DOCUSATE SODIUM 100 MG CAP PO SCH (08:38)
[2017-09-07] MEDS: SIMETHICONE 80 MG CHEW PO SCH ×2 (08:39→12:08)
[2017-09-07] MEDS: PRENATAL VITAMIN TAB PO SCH (08:39)
[2017-09-07 14:30] VITALS: BP_DIAS 79; PULSE 79; TEMP 36.8
--- NOTE | 2017-09-09 09:52 | DISCHARGE SUMMARY ---
ADMISSION DIAGNOSES: 1. Intrauterine at term with premature rupture of membranes. 2. Group B strep positive. 3. Morbid obesity. 4. Gestational diabetes mellitus, diet controlled. DISCHARGE DIAGNOSES: 1. Intrauterine at term with premature rupture of membranes. 2. Group B strep positive. 3. Morbid obesity. 4. Nonreassuring heart testing and intolerance of labor. PROCEDURES: Primary low transverse section with a left cervical extension. HISTORY OF PRESENT ILLNESS: The patient is a 32-year-old 2, para 0-0-1-0 with an EDC of 08/31/2017 who presented to labor and delivery on 09/04/2017 with premature rupture of membranes before the onset of labor. She was GBS positive and been adequately treated. She was admitted and underwent Pitocin augmentation. For the rest of the patient's detailed history and physical, please see her dictated history and physical. ASSESSMENT: Intrauterine at 40+ weeks with premature rupture of membranes before the onset of labor. HOSPITAL COURSE: The patient was admitted. She underwent Pitocin augmentation. During the course of her augmentation, she had very large decelerations. She was checked and the umbilical cord was found to be up around the face and this was reduced by the physician. The strip returned to category 1. Decision was made to continue with induction. Her Pitocin continued to be turned on and off secondary to several variable decelerations with contractions. She did progress to rim and the fetus had significant molding, but the presenting part was at 0 station. Unfortunately, the patient continued to have persistent variable decelerations with contractions and when any of these contractions were of significant value there were decelerations to the 60s. Given the remoteness from delivery and the nonreassuring heart rate at that time, I have recommended to proceed with delivery. The patient herself is agreeable. The patient underwent a primary low transverse section and had a left cervical extension. Estimated blood loss was 600 mL. She delivered a viable infant, 8 pounds 3 ounces, Apgars 3 and 9. The fetus was wedged into the pelvis and required displacement vaginally. There was a left cervical extension that was identified and repaired. Normal uterus, tubes, and ovaries were noted bilaterally. The patient's course was uncomplicated. She tolerated a regular diet, voided after the removal of her Arellano catheter, ambulated without difficulty, remained afebrile. Her discharge H&H was 10.0 and 28.6. Her incision was a vertical midline and closed with ezequiel. She is to return in 1 week for staple removal. She was discharged on postoperative day #2 to return for staple removal in 1 week. She was given Percocet and ibuprofen for pain.
== END 2017-09-07 15:30 | disposition home or self-care (01) | DRG 765 ==
LOC: C.OPB 08:24 → C.LD 08:25 → C.OPB 09:08 → C.LD 09:57 → C.OBG 09-05 14:53
PROVIDERS: ADMIT Obstetrics & Gynecology; ATTEND Obstetrics & Gynecology
PROC: 0UQC7ZZ Repair Cervix, Via Natural or Artificial Opening (ICD-10-PCS; principal; 2017-09-05 09:48)
PROC: 10D00Z1 Extraction of Products of Conception, Low, Open Approach (ICD-10-PCS; principal; 2017-09-05 09:48)
DX: O76 Abnormality in fetal heart rate and rhythm complicating labor and delivery (principal); O71.3 Obstetric laceration of cervix; Z68.41 Body mass index [BMI] 40.0-44.9, adult; O42.92 Full-term premature rupture of membranes, unspecified as to length of time between rupture and onset of labor; E66.01 Morbid (severe) obesity due to excess calories; O99.214 Obesity complicating childbirth; O48.0 Post-term pregnancy; O24.420 Gestational diabetes mellitus in childbirth, diet controlled; O99.824 Streptococcus B carrier state complicating childbirth; O69.81X0 Labor and delivery complicated by cord around neck, without compression, not applicable or unspecified; Z37.0 Single live birth; Z3A.40 40 weeks gestation of pregnancy

== ENCOUNTER → 2017-10-23 | Outpatient (CLI) | payer BC ==
[~2017-10-23] MED LIST changes: -ALBUAER2 INH; -AZIT250T PO; -AZITTAB PO; -BCPILLS PO; -HYCUDL5 PO; +MTR600X PO; +OXYC-57 PO; +PRENTAB26 PO
[2017-10-23 15:17] LABS: GLUCOSE,2HR PP 98 mg/dl (70-140)
[2017-10-23 20:07] LABS: GTGD 50 Grams
== END | disposition home or self-care (01) ==
LOC: C.LAB1850 10:32
PROVIDERS: ATTEND Obstetrics & Gynecology
DX: O24.410 Gestational diabetes mellitus in pregnancy, diet controlled (principal)

== ENCOUNTER → 2018-01-28 | Outpatient (CLI) | payer BC | END | disposition home or self-care (01) | LOC: C.LAB 08:30 | PROVIDERS: ATTEND Physician Assistant | DX: Z30.430 Encounter for insertion of intrauterine contraceptive device (principal); N91.2 Amenorrhea, unspecified ==